=== PATIENT | female | born 1980 | race African-American/Black ===

== ENCOUNTER 2016-03-11 11:26 | Outpatient (CLI) | payer OTHER ==
[~2016-03-11] VITALS: Ht 162.6 cm; Wt 90.0 kg
[2016-03-11 11:36] VITALS: BP 117/63
[2016-03-11 11:38] VITALS: BP 111/59
[2016-03-11] MEDS ORDERED: PRENTAB9 PO (11:52)
[2016-03-11 13:02] VITALS: BP 123/59
== END 2016-03-11 13:50 | disposition home or self-care (01) ==
LOC: M LDO 11:26
PROVIDERS: ATTEND Obstetrics & Gynecology
DX: O36.8130 Decreased fetal movements, third trimester, not applicable or unspecified (principal); Z3A.27 27 weeks gestation of pregnancy; Z88.0 Allergy status to penicillin; Z88.6 Allergy status to analgesic agent

== ENCOUNTER 2016-05-31 02:33 | Inpatient (IN) | payer OTHER ==
[2016-05-31] VITALS (42 sets, daily range): BP systolic 84–124; BP diastolic 50–77
[~2016-05-31] VITALS: Ht 162.6 cm; Wt 102.0 kg
[~2016-05-31 02:33] MED LIST: PRENTAB9 PO
[2016-05-31] MEDS ORDERED: LACTATED RINGER'S 1000 ML IV STA (03:07)
[2016-05-31] MEDS ORDERED: LR 1,000 ML IV SCH (03:18)
[2016-05-31 03:29] LABS: MEAN CORPUSCULAR HEMOGLOBIN 30.2 pg (27.0-33.0); MEAN CORPUSCULAR HGB CONC 33.3 g/dl (32.0-36.5); MEAN CORPUSCULAR VOLUME 90.5 fl (80.0-96.0); RED CELL DISTRIBUTION WIDTH 13.6 % (11.5-14.5); WHITE BLOOD COUNT 6.8 K/mm3 (4.0-10.0)
[2016-05-31] MEDS: LR 1,000 ML IV SCH ×3 (03:30→16:42)
[2016-05-31] MEDS ORDERED: OXYTOCIN DRIP 30 UNITS in APPROPRIATE DILUENT 1 EA IV SCH (03:30)
--- NOTE | 2016-05-31 08:40 | IPNPDOC ---
Obstetrical Progress Note Date of Service The patient was seen on 05/31/16 at 08:28. Progress Note [id number] @ [address] Jones @ 0730. 35 yo @ 39+2 by 7 wk US on 17OCT2016 with ROM @ 0100 on 31MAY2016 of clear fluid. S: Resting in bed on left side. Uncomfortable and breathing through CTXs. Spouse at bedside. O: VS- WNL, afebrile FHR- 140, min-mod variability, no accels, persistent late decels CTX- Q 2-3 min, lasting < 90 sec, palpated as moderate, resting tone palpated as soft Pitocin @ 4 mU/min SVE- FT/50/-3, soft/vtx/post SROM x 7 hours, fluid remains clear. A: 35 yo @ 39+2 with SROM clear fluid x 7 hours, no s/s of infection, CAT II FHR Tracing P: continue to monitor and assess. Report to Dr. Ramon to discuss plan of care. O2, continue to change pt position, and fluid bolus as appropriate. VS, I&O, 24H, Pravinbonsushil Vital Signs/I&O Vital Signs Date Time Temp Pulse Resp B/P Pulse Ox O2 Delivery O2 Flow Rate FiO2 05/31/16 08:09 98.2 05/31/16 08:00 66 98/57 05/31/16 06:00 20 Laboratory Data 24H LABS Laboratory Tests 2 05/31/16 03:08: Serology Scanned Report Hepatitis B Testing 05/31/16 03:10: CBC/BMP Laboratory Tests 05/31/16 03:10 Red Blood Count 4.02, Mean Corpuscular Volume 90.5, Mean Corpuscular Hemoglobin 30.2, Mean Corpuscular Hemoglobin Concent 33.3, Red Cell Distribution Width 13.6 MARIVEL BETANCOURT CNM May 31, 2016 08:40
[2016-05-31] MEDS ORDERED: BUTORPHANOL 2 MG/ML INJ (J0595) IV ONE (10:15)
[2016-05-31] MEDS ORDERED: PROMETHAZINE INJ 25 MG/ML VIAL (J2550) IV ONE (10:15)
--- NOTE | 2016-05-31 10:19 | IPNPDOC ---
Obstetrical Progress Note Date of Service The patient was seen on 05/31/16 at 10:15. Progress Note [id number] @ 1015 35 yo @ 39+2 by 7 wk US on 17OCT2016 with ROM @ 0100 on 31MAY2016 of clear fluid. S: Resting in bed on right side. Uncomfortable and breathing through CTXs. Requesting IV pain medication. Spouse at bedside. O: VS- WNL, afebrile FHR- 150, mod variability, + accels, intermittent late deceleration CTX- Q 2-5 min, lasting < 90 sec, palpated as moderate, resting tone palpated as soft Pitocin @ 4 mU/min SVE- deferred SROM x 9 hours, fluid remains clear. A: 35 yo @ 39+2 with SROM clear fluid x 9 hours, no s/s of infection, CAT II FHR Tracing. P: continue to monitor and assess, reassess in 2 hours or prn, stadol and phenergan ordered, continue to titrate pitocin per unit protocol Reviewed FHR tracing with Dr. Ramon @ 0900, has no concerns with FHR tracing. No change to plan of care. VS, I&O, 24H, Fishbone Vital Signs/I&O Vital Signs Date Time Temp Pulse Resp B/P Pulse Ox O2 Delivery O2 Flow Rate FiO2 05/31/16 08:30 65 18 97/50 05/31/16 08:09 98.2 Laboratory Data 24H LABS Laboratory Tests 2 05/31/16 03:08: Serology Scanned Report Hepatitis B Testing 05/31/16 03:10: CBC/BMP Laboratory Tests 05/31/16 03:10 Red Blood Count 4.02, Mean Corpuscular Volume 90.5, Mean Corpuscular Hemoglobin 30.2, Mean Corpuscular Hemoglobin Concent 33.3, Red Cell Distribution Width 13.6 MARIVEL BETANCOURT CNM May 31, 2016 10:19
--- NOTE | 2016-05-31 12:42 | IPNPDOC ---
Obstetrical Progress Note Date of Service The patient was seen on 05/31/16 at 12:39. Progress Note [id number] @ 1235 35 yo @ 39+2 by 7 wk US on 17OCT2016 with ROM @ 0100 on 31MAY2016 of clear fluid. S: Resting in bed in right tilt. Reports feeling CTXs, but the IV medication is helping a lot. Spouse at bedside. O: VS- WNL, afebrile FHR- 150, min-mod variability, + accels, intermittent late deceleration CTX- Q 2-5 min, lasting < 90 sec, palpated as moderate, resting tone palpated as soft Pitocin @ 4 mU/min SVE- FT/50/-3, vtx/post/moderate SROM x 11.5 hours, fluid remains clear. A: 35 yo @ 39+2 with SROM clear fluid x 11.5 hours, no s/s of infection , CAT II FHR Tracing. P: continue to monitor and assess, reassess in 2 hours or prn, continue to titrate pitocin per unit protocol VS, I&O, 24H, Fishbone Vital Signs/I&O Vital Signs Date Time Temp Pulse Resp B/P Pulse Ox O2 Delivery O2 Flow Rate FiO2 05/31/16 12:33 98.5 93 16 121/76 Laboratory Data 24H LABS Laboratory Tests 2 05/31/16 03:08: Serology Scanned Report Hepatitis B Testing 05/31/16 03:10: Syphilis Serology NONREACTIVE CBC/BMP Laboratory Tests 05/31/16 03:10 Red Blood Count 4.02, Mean Corpuscular Volume 90.5, Mean Corpuscular Hemoglobin 30.2, Mean Corpuscular Hemoglobin Concent 33.3, Red Cell Distribution Width 13.6 MARIVEL BETANCOURT CNM May 31, 2016 12:42
--- NOTE | 2016-05-31 14:53 | IPNPDOC ---
Obstetrical Progress Note Date of Service The patient was seen on 05/31/16 at 14:50. Progress Note [id number] @ 1445 35 yo @ 39+2 by 7 wk US on 17OCT2016 with ROM @ 0100 on 31MAY2016 of clear fluid. S: Resting in bed sleeping. Wakes easily to talk. Reports feeling mild CTXs. Spouse at bedside. O: Pitocin was turned off @ 1250. It is now 1450 and CTXs continue to occur Q 5-8 min. Pt fell asleep after turning off the pitocin. A: 35 yo @ 39+2 with SROM clear fluid x 13.5 P: continue to monitor and assess, Pt is to take a shower and start pitocin by 1530. Continue to increase pitocin per unit protocol. VS, I&O, 24H, Fishbone Vital Signs/I&O Vital Signs Date Time Temp Pulse Resp B/P Pulse Ox O2 Delivery O2 Flow Rate FiO2 05/31/16 13:37 98.0 64 16 97/56 Laboratory Data 24H LABS Laboratory Tests 2 05/31/16 03:08: Serology Scanned Report Hepatitis B Testing 05/31/16 03:10: Syphilis Serology NONREACTIVE CBC/BMP Laboratory Tests 05/31/16 03:10 Red Blood Count 4.02, Mean Corpuscular Volume 90.5, Mean Corpuscular Hemoglobin 30.2, Mean Corpuscular Hemoglobin Concent 33.3, Red Cell Distribution Width 13.6 MARIVEL BETANCOURT CNM May 31, 2016 14:53
[2016-05-31] MEDS ORDERED: FENTANYL 2MCG/ML ROPIVACAINE 0.2% IN 0.9% NACL 200ML IVBAG As Ordered ONE (16:31)
[2016-05-31 17:46] LABS: MEAN CORPUSCULAR HGB CONC 32.9 g/dl (32.0-36.5); MEAN CORPUSCULAR VOLUME 91.1 fl (80.0-96.0); RED CELL DISTRIBUTION WIDTH 13.8 % (11.5-14.5); WHITE BLOOD COUNT 7.4 K/mm3 (4.0-10.0)
[2016-05-31] MEDS ORDERED: LACTATED RINGER'S 1000 ML IV PRN (19:15)
[2016-05-31] MEDS ORDERED: REFRIGERATOR IV KEYS XX PRN (19:15)
[2016-05-31] MEDS ORDERED: EPIDURAL/PCA KEYS XX PRN (19:15)
[2016-05-31] MEDS ORDERED: FENTANYL/ROPIVACAINE/NACL BAG 200 ML EPIDURAL SCH (19:15)
[2016-05-31] MEDS ORDERED: NALOXONE INJ 0.4 MG/1 ML VIAL (J2310) IV PRN (19:15)
[2016-05-31] MEDS ORDERED: ONDANSETRON 4MG/2ML VIAL (J2405) IV PRN (19:15)
[2016-05-31] MEDS ORDERED: EPIDURAL COMMENT XX SCH (19:15)
[2016-05-31] MEDS ORDERED: diphenhydrAMINE INJ 50MG/ML VIAL (J1200) IV PRN (19:15)
[2016-05-31] MEDS ORDERED: ePHEDrine SULFATE 25 MG/5 ML(5MG/ML) SYRINGE IV PRN (19:15)
--- NOTE | 2016-05-31 20:17 | IPNPDOC ---
Text Note Date of Service The patient was seen on 05/31/16. NOTE I accepted care of Nicole at 1930 this evening. She is a primip with PROM last night at 0100, clear. Fingertip on admission, started on pitocin, evaluated over the course of the day and not felt to make much change, no phelps bulb could be attempted. Cat I FHRT, currently on pit of 8mu. Ctx q3min. Epidural in place, comfortable. SCE: /-2. Phelps bulb now easily placed. Will continue to titrate pitocin per protocol. Close eye to maternal temp/FHRT for evidence of developing chorio, since will have been ruptured 24hr tonight at 0100. Has thus far been afebrile. Safe to proceed. Pat Ramon MD VS,Andre, I+O VSAndre I+O Laboratory Tests 05/31/16 03:10 Red Blood Count 4.02, Mean Corpuscular Volume 90.5, Mean Corpuscular Hemoglobin 30.2, Mean Corpuscular Hemoglobin Concent 33.3, Red Cell Distribution Width 13.6 05/31/16 17:18 Red Blood Count 3.71 L, Mean Corpuscular Volume 91.1, Mean Corpuscular Hemoglobin 30.0, Mean Corpuscular Hemoglobin Concent 32.9, Red Cell Distribution Width 13.8 Vital Signs Date Time Temp Pulse Resp B/P Pulse Ox O2 Delivery O2 Flow Rate FiO2 05/31/16 19:37 72 05/31/16 19:31 20 109/68 05/31/16 19:10 97.6 Room Air PAT RAMON MD May 31, 2016 20:17
[2016-06-01] VITALS (26 sets, daily range): BP systolic 102–128; BP diastolic 55–78
--- NOTE | 2016-06-01 00:30 | IPNPDOC ---
Text Note Date of Service The patient was seen on 06/01/16. NOTE Patient comfortable with epidural. Called to room by RN to evaluate tracing. FHRT had a few subtle late decels. She had pulled on the phelps bulb and it came out, tracing improved for a few minutes then had a couple subtle late decels again. Pitocin was turned down a small amount. Currently Cat I with +accels/mod iam/no decels, but recently had just those few subtle lates that appear resolved for the time being. FHRT has always maintained mod iam and accels. IUPC and FSE placed to better monitor FHRT and adequately assess MVUs to titrate pitocin. Had conversation with patient that if FHRT developed a pattern with decelerations that did not resolve with our interventions, we would need to proceed with section. However, at this time, FHRT is very reassuring. If cannot get adequate MVUs with appropriate pitocin titration with continued tolerance, will proceed to . Will continue to closely monitor. Safe to proceed. Dr. Pat Ramon MD VS,Andre, I+O VSAndre, I+O Laboratory Tests 05/31/16 03:10 Red Blood Count 4.02, Mean Corpuscular Volume 90.5, Mean Corpuscular Hemoglobin 30.2, Mean Corpuscular Hemoglobin Concent 33.3, Red Cell Distribution Width 13.6 05/31/16 17:18 Red Blood Count 3.71 L, Mean Corpuscular Volume 91.1, Mean Corpuscular Hemoglobin 30.0, Mean Corpuscular Hemoglobin Concent 32.9, Red Cell Distribution Width 13.8 Vital Signs Date Time Temp Pulse Resp B/P Pulse Ox O2 Delivery O2 Flow Rate FiO2 05/31/16 23:12 68 05/31/16 22:59 98.2 109/70 05/31/16 19:31 20 05/31/16 19:10 Room Air PAT RAMON MD Jun 01, 2016 00:30
--- NOTE | 2016-06-01 05:50 | IPNPDOC ---
Text Note Date of Service The patient was seen on 06/01/16. NOTE Patient had her epidural re-bolused during the night and had good pain relief after, but wearing off again and now feeling a lot of tail bone pain, tearful with contractions. States she "doesn't want to do this anymore". Plan was to re-check this morning and if not progressing, to proceed with . Her cervix has not changed, still /-2 after placement of IUPC just under 6 hours ago. She had PROM at 0100 the previous night, now 29hr ruptured. No fevers or evidence of chorio. Reassuring FHRT. Will proceed with for arrest of dilation/inability to augment. Consent form signed. Dr. Pat Ramon MD VS,Andre, I+O VS, Andre, I+O Laboratory Tests 05/31/16 17:18 Red Blood Count 3.71 L, Mean Corpuscular Volume 91.1, Mean Corpuscular Hemoglobin 30.0, Mean Corpuscular Hemoglobin Concent 32.9, Red Cell Distribution Width 13.8 Vital Signs Date Time Temp Pulse Resp B/P Pulse Ox O2 Delivery O2 Flow Rate FiO2 06/01/16 03:51 99.0 06/01/16 02:44 81 116/72 05/31/16 19:31 20 05/31/16 19:10 Room Air I&O- Last 24 Hours up to 6 AM 06/01/16 06:00 Intake Total 2600 ml Output Total 2600 ml Balance 0 ml PAT RAMON MD Jun 01, 2016 05:50
[2016-06-01] MEDS ORDERED: BICITRA 30ML SOLN UDC PO ONE (06:00)
[2016-06-01] MEDS ORDERED: CLINDAMYCIN 900 MG in APPROPRIATE DILUENT 1 EA IV ONE (06:00)
[2016-06-01] MEDS ORDERED: GENTAMICIN 150 MG in D5W 50 ML IV ONE (06:00)
[2016-06-01] MEDS ORDERED: OXYTOCIN INJ 10 UNITS/ML VIAL (J2590) As Ordered ONE (06:10)
[2016-06-01] MEDS ORDERED: MORPHINE PRES-FREE INJ 10 MG/10 ML VIAL (J2274) As Ordered ONE (06:48)
[2016-06-01] MEDS ORDERED: GENTAMICIN 10 MG/ML 2ML VIAL*PRES.FREE* (J1580) As Ordered ONE ×2 (06:49→06:53)
[2016-06-01] MEDS ORDERED: dexameTHASONE 4 MG/ML 1ML VIAL (J1100) As Ordered ONE (06:51)
[2016-06-01] MEDS ORDERED: MIDAZOLAM INJ 2 MG/2 ML VIAL (J2250) As Ordered ONE (07:01)
[2016-06-01 07:56] LABS: CORD GAS ABE V -8.1; CORD GAS HCO3 V 20.4 MEQ/L; CORD GAS O2 SAT V 62.9 %; CORD GAS PCO2 V 53.3 mmHg; CORD GAS PH V 7.201 UNITS; CORD GAS PO2 V 33.2 mmHg; CORD GAS SBC V 17.2 MEQ/L
[2016-06-01] MEDS ORDERED: MEASLES,MUMPS,RUBELLA VACCINE INJ (MMR-II) (90707) SC SCH (08:00)
[2016-06-01] MEDS ORDERED: MORPHINE 2 MG/ML 1ML SYRINGE IV PRN (08:00)
[2016-06-01] MEDS ORDERED: miSOPROStol 200 MCG TAB (S0191) PR ONE (08:00)
[2016-06-01] MEDS ORDERED: RHOGAM 300 MCG (1500 IU) INJ (J2790) IM SCH (08:00)
[2016-06-01] MEDS ORDERED: PERCOCET 5MG/325MG TAB PO PRN (08:15)
[2016-06-01] MEDS ORDERED: fentaNYL 100 MCG/2 ML INJECTION (J3010) IV PRN (08:15)
[2016-06-01] MEDS ORDERED: ONDANSETRON 4MG/2ML VIAL (J2405) IV PRN (08:15)
[2016-06-01] MEDS: DOCUSATE SODIUM 100 MG CAP PO SCH ×2 (09:00→20:29)
[2016-06-01] MEDS: PRENATAL VITAMIN TAB PO SCH (09:00)
--- NOTE | 2016-06-01 10:37 | RO ---
DATE OF PROCEDURE: 06/01/2016 PREPROCEDURE DIAGNOSES: Term intrauterine with rupture of membranes, arrest of dilation. POSTPROCEDURE DIAGNOSES: Term intrauterine with rupture of membranes, arrest of dilation. PROCEDURE PERFORMED: Primary low transverse section. SURGEON: Ann-Marie Ramon MD TANK TRUCK ENGINE MECHANIC: Irineo Mendiola MD CLINICAL SERVICE: Obstetrics. INDICATION FOR OPERATION: Nicole is a 35-year-old, 3, now para 1-0-2-1 who was admitted for premature rupture of membranes, dilated only to fingertip, and had very slow progression to 4 cm, which she remained with adequate MVUs and IUPC in place for greater than 6 hours, so the diagnosis of arrest of dilation was made in the setting of rupture of membranes for 29 hours. MATERIAL FORWARDED TO THE LAB FOR EXAMINATION: Venous cord gas. DESCRIPTION OF FINDINGS: Male infant in OA presentation, scores 9 and 9, weight 4224 grams or 9 pounds 6 ounces. Normal-appearing uterus, tubes, and ovaries. There was terminal meconium but no meconium stained fluid. INFECTION CLASSIFICATION: 2. ESTIMATED BLOOD LOSS: 700 mL. IV FLUIDS: 1100 mL of lactated Ringers URINE OUTPUT: 450 mL of clear yellow urine. DESCRIPTION OF PROCEDURE: After obtaining informed consent, Nicole was taken to the operating room. Florian catheter was already in place since she had an epidural. Bilateral sequential compression devices were placed. She was prepped and draped in normal sterile fashion in the dorsal supine position with a left lateral tilt. She received 900 mg of clindamycin IV and 150 mg of gentamicin given that she had an allergy to penicillin. Time out was performed to confirm patient's name, date of , procedure, and indication. The surgical team was all in agreement. Epidural anesthesia was found to be adequate using Allis clamp. Pfannenstiel skin incision was made with a scalpel and carried through to the underlying layer of the fascia. Fascia was incised in the midline and the incision was extended laterally with the Rodriguez scissors. The superior and inferior aspects of the fascial incision were grasped with Roberto clamps, elevated and the underlying rectus muscles were dissected off bluntly and sharply. Peritoneum was entered digitally and the rectus muscles were in the midline. Peritoneal incision was extended superiorly and inferiorly with good visualization of the bladder. Bladder blade was inserted and the vesicouterine peritoneum was identified, grasped with pickups and entered sharply with the Metzenbaum scissors. Incision was extended laterally and the bladder flap was created digitally. Bladder blade was reinserted and the lower uterine segment was scored in a transverse fashion with the scalpel. The uterus was entered bluntly and the incision was extended with traction. Bladder blade was removed and the infant's head was elevated to the level of the incision. We attempted to use the vacuum to bring the head to the level of the incision, but there was too much hair and the vacuum popped off twice. We did have to make incisions in both of the rectus bundles to be able to gain adequate room for the head, but the head was delivered atraumatically when fundal pressure was applied in the OA position. Anterior shoulder, posterior shoulder, and corpus were delivered without difficulty. Nose and mouth were suctioned with bulb suction and cord was clamped times two and cut. Terminal meconium was noted. Infant was handed off to the awaiting nursing team, and venous cord gas was obtained. Placenta was removed manually and the uterus was exteriorized and cleared of all clot and debris. Uterine incision was repaired with #0 Vicryl in a running locking fashion. A second layer using #0 Monocryl was used to close the hysterotomy incision in an imbricating fashion. Uterine incision was inspected. Hemostasis was noted. Posterior cul-de-sac was irrigated and the uterus was returned to the abdomen. Peritoneum was closed using #3-0 Vicryl suture in a running fashion. The rectus muscles were inspected and there was only one area with very slight bleeding that we reapproximated using figure of eight stitch with #0 Vicryl suture. Fascia was reapproximated with #0 Vicryl suture in a running fashion. Subcutaneous tissue was copiously irrigated. Seth's fascia reapproximated using #3-0 Vicryl suture in a running fashion, and then skin edges were reapproximated using three inverted interrupted stitches using #3-0 Vicryl suture, followed by a running subcuticular stitch using #4-0 Monocryl. THe incision was cleaned using a wet lap and dried with a dry lap. Steri-Strips were applied in the usual fashion perpendicular to the Pfannenstiel incision. The sterile drapes were removed and the vagina was cleared of all blood clot without active bleeding noted. I did place 1000 mcg of Cytotec rectally for prophylaxis given that she has been on Pitocin for a long time. Fundus was firm at U -1 cm. All counts were correct times two. Nursing team applied pressure dressing to the surgical incision. No complications of the procedure and she tolerated it well. She was taken to the recovery room on labor and delivery in stable condition.
[2016-06-01] MEDS: PERCOCET 5MG/325MG TAB PO PRN ×2 (13:33→17:11)
[2016-06-01] MEDS ORDERED: D5W IV ONE (17:00)
[2016-06-01] MEDS ORDERED: GENTAMICIN IV ONE (17:00)
[2016-06-01] MEDS: LR 1,000 ML IV SCH (23:54)
[2016-06-02] MEDS: PERCOCET 5MG/325MG TAB PO PRN ×5 (01:50→23:45)
[2016-06-02 02:00] VITALS: BP 107/59
[2016-06-02 06:23] VITALS: BP 107/58
[2016-06-02] MEDS: LR 1,000 ML IV SCH ×5 (06:28→23:54)
[2016-06-02] MEDS ORDERED: miSOPROStol 200 MCG TAB (S0191) As Ordered ONE (07:22)
[2016-06-02] MEDS: DOCUSATE SODIUM 100 MG CAP PO SCH ×2 (07:36→21:13)
[2016-06-02] MEDS: PRENATAL VITAMIN TAB PO SCH (07:37)
[2016-06-02 08:57] LABS: MEAN CORPUSCULAR HEMOGLOBIN 31.6 pg (27.0-33.0); MEAN CORPUSCULAR HGB CONC 34.6 g/dl (32.0-36.5); MEAN CORPUSCULAR VOLUME 91.4 fl (80.0-96.0); RED CELL DISTRIBUTION WIDTH 13.8 % (11.5-14.5); WHITE BLOOD COUNT 9.1 K/mm3 (4.0-10.0)
[2016-06-02 09:58] VITALS: BP 110/57
--- NOTE | 2016-06-02 10:09 | IPNPDOC ---
Text Note Date of Service The patient was seen on 06/02/16. NOTE Post-Op Day 1 Nicole is a 35yo [id number] doing well on post-op day 1 s/p uncomplicated PLTCS indicated for arrest of dilation after presenting with PROM 29hr prior and not progressing beyond 4cm for greater than 6hr at 39w3d. She has not yet been able to urinate. Phelps was removed yesterday afternoon and she did not meet due to void, had over 1L drained with phelps. Phelps again removed this morning at 0600 and replaced 3hr later when patient unable to void. She has labial swelling which may be contributing to her inability to urinate. She is , currently receiving assistance from clinical operations consultant. Lochia normal. Ambulating without difficulty. Tolerating regular diet. Denies f/c/n/v/ SOB/CP/ROBERSON/abdominal pain. Vitals wnl, afebrile Exam: General: WDWN, NAD, resting comfortably Cardiac: S1S2 present, no murmur Lungs: CTAB without wheeze/crackles Abdomen: soft, NTTP, fundus firm u-2cm, pfannensteil incision intact with no surrounding erythema, no drainage. Steris in place which are clean and dry. Extremities: no tenderness of calves bilaterally Phelps draining clear yellow urine Labs: Admission H/H: 12.1/36.4 POD 1 H/H: 11/31.8 (Surgical EBL 700ml) Assessment: Nicole is a 35yo [id number] doing well on post-op day 1 s/p uncomplicated PLTCS indicated for arrest of dilation. Vitals wnl, benign exam. No e/o infection, hemodynamically stable. Giving bladder rest currently with phelps draining clear yellow urine, adequate UOP. Plan: -routine post-op/post- care -phelps until tomorrow at 0600, then due to void -Regular diet -percocet prn pain -Encourage ambulation and and use of IS -breast pump Rx given -likely discharge to home tomorrow Dr. Pat Ramon MD [facility] VS,Andre, I+O VS, Andre, I+O Laboratory Tests 06/02/16 08:10 Red Blood Count 3.48 L, Mean Corpuscular Volume 91.4, Mean Corpuscular Hemoglobin 31.6, Mean Corpuscular Hemoglobin Concent 34.6, Red Cell Distribution Width 13.8 Vital Signs Date Time Temp Pulse Resp B/P Pulse Ox O2 Delivery O2 Flow Rate FiO2 06/02/16 09:58 98.1 76 18 110/57 06/02/16 07:37 Room Air 06/02/16 06:23 97 I&O- Last 24 Hours up to 6 AM 06/02/16 05:59 Output Total 4775 ml Balance -4775 ml PAT RAMON MD Jun 02, 2016 10:09
[2016-06-02 10:30] VITALS: BP 121/75
[2016-06-02 14:00] VITALS: BP 116/60
[2016-06-02 22:00] VITALS: BP 121/75
[2016-06-03] MEDS: PERCOCET 5MG/325MG TAB PO PRN ×5 (03:38→21:52)
[2016-06-03 06:26] VITALS: BP 110/53
[2016-06-03] MEDS: DOCUSATE SODIUM 100 MG CAP PO SCH ×2 (07:57→21:05)
[2016-06-03] MEDS: PRENATAL VITAMIN TAB PO SCH (07:57)
[2016-06-03] MEDS: HYDROCORTISONE 1% OINTMENT 30GM TOP SCH ×2 (15:00→21:06)
[2016-06-03 18:06] VITALS: BP 117/62
[2016-06-04] MEDS: PERCOCET 5MG/325MG TAB PO PRN ×3 (02:27→12:17)
[2016-06-04 05:33] VITALS: BP 124/60
[2016-06-04] MEDS: HYDROCORTISONE 1% OINTMENT 30GM TOP SCH (07:33)
[2016-06-04] MEDS: PRENATAL VITAMIN TAB PO SCH (07:34)
[2016-06-04] MEDS: DOCUSATE SODIUM 100 MG CAP PO SCH (07:34)
[2016-06-04] MEDS ORDERED: COLA100C3 PO (14:34)
[2016-06-04] MEDS ORDERED: OXYC1TAB23 PO (14:34)
== END 2016-06-04 15:30 | disposition home or self-care (01) | DRG 766 ==
LOC: M LDO 02:33 → M LDI 02:54 → M OBS 06-01 07:59
PROVIDERS: ADMIT Student in an Organized Health Care Education/Training Program; ATTEND Student in an Organized Health Care Education/Training Program
PROC: 10D00Z1 Extraction of Products of Conception, Low, Open Approach (ICD-10-PCS; principal; 2016-06-01 11:05)
DX: O42.02 Full-term premature rupture of membranes, onset of labor within 24 hours of rupture (principal); Z37.0 Single live birth; Z3A.39 39 weeks gestation of pregnancy; O62.0 Primary inadequate contractions

== ENCOUNTER 2016-10-31 06:10 | Day surgery (SDC) | payer OTHER ==
[~2016-10-31] VITALS: Ht 162.6 cm; Wt 96.6 kg
[~2016-10-31 06:10] MED LIST changes: +COLA100C5 PO; +MULT1TAB10 PO; +OXYC1TAB23 PO
[2016-10-31 06:30] LABS: MEAN CORPUSCULAR HGB CONC 34.2 g/dl (32.0-36.5); MEAN CORPUSCULAR VOLUME 87.6 fl (80.0-96.0); RED CELL DISTRIBUTION WIDTH 13.3 % (11.5-14.5); WHITE BLOOD COUNT 5.4 K/mm3 (4.0-10.0)
[2016-10-31 06:45] LABS: CONTROL LINE HCG INT CTR LINE PRESENT
[2016-10-31] MEDS ORDERED: LR 1,000 ML IV ONE (06:45)
[2016-10-31] MEDS ORDERED: BUPIVACAINE/EPIN 0.25% 30 ML VIAL As Ordered ONE (07:19)
[2016-10-31] MEDS ORDERED: MIDAZOLAM INJ 2 MG/2 ML VIAL (J2250) As Ordered ONE (07:53)
[2016-10-31] MEDS ORDERED: dexameTHASONE 4 MG/ML 1ML VIAL (J1100) As Ordered ONE (07:53)
[2016-10-31] MEDS ORDERED: fentaNYL 100 MCG/2 ML INJECTION (J3010) As Ordered ONE (07:53)
[2016-10-31] MEDS ORDERED: PROPOFOL 500 MG/50 ML VIAL As Ordered ONE (07:53)
[2016-10-31] MEDS ORDERED: METOCLOPRAMIDE INJ 10MG/2ML VIAL (J2765) As Ordered ONE (07:53)
[2016-10-31] MEDS ORDERED: ONDANSETRON 4MG/2ML VIAL (J2405) As Ordered ONE (07:54)
[2016-10-31] MEDS ORDERED: ROCURONIUM BROMIDE 50 MG/5 ML VIAL/SYRINGE As Ordered ONE (08:00)
[2016-10-31] MEDS ORDERED: LIDOCAINE 2% INJ 100 MG/5 ML SDV (FOR ANES.) As Ordered ONE (08:03)
[2016-10-31] MEDS ORDERED: SILVER NITRATE APPLICATOR As Ordered ONE (08:03)
[2016-10-31] MEDS ORDERED: NEOSTIGMINE 1MG/ML 5 ML SYRINGE (J2710) As Ordered ONE (08:03)
[2016-10-31] MEDS ORDERED: GLYCOPYRROLATE INJ 0.2 MG/ML 2 ML VIAL As Ordered ONE (08:03)
[2016-10-31] MEDS ORDERED: HYDROmorphone HCL 2 MG/ML 1ML VIAL (J1170) As Ordered ONE (08:10)
[2016-10-31] MEDS ORDERED: fentaNYL 100 MCG/2 ML INJECTION (J3010) IV PRN (08:45)
[2016-10-31] MEDS ORDERED: ONDANSETRON 4MG/2ML VIAL (J2405) IV PRN (08:45)
[2016-10-31] MEDS ORDERED: PERCOCET 5MG/325MG TAB PO PRN (08:45)
[2016-10-31] MEDS ORDERED: METOCLOPRAMIDE INJ 10MG/2ML VIAL (J2765) IV PRN (08:45)
[2016-10-31] MEDS ORDERED: LR 1,000 ML IV SCH (08:45)
[2016-10-31] MEDS ORDERED: MORPHINE 2 MG/ML 1ML SYRINGE IV PRN (08:45)
--- NOTE | 2016-10-31 11:42 | RO ---
DATE OF PROCEDURE: 10/31/2016 PREOPERATIVE DIAGNOSIS: Satisfied parity. 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 PROCEDURE: Laparoscopic tubal ligation SURGEON: Bulmaro Paredes MD DOPER OPERATOR: Kobi Crain MD ANESTHESIA: General. ESTIMATED BLOOD LOSS: Less than 5 mL. DRAINS: 300 mL in the Florian catheter which was removed at the end of the case. REPLACED: 900 mL of fluid, Lactated Ringer's. SPECIMENS: None. PREOPERATIVE ANTIBIOTICS: None. INDICATIONS: Satisfied parity, however the patient was a 1, para 1, therefore I elected to not do a salpingectomy and instead used Filshie clips. DESCRIPTION OF OPERATION: Informed consent was obtained 1-2 weeks prior to the surgery and nothing had changed on the morning of the surgery. Her labs were normal. Proceeded to the operating room with an IV plan and general anesthesia was easily obtained. She was placed in a low lithotomy position and an exam under anesthesia was performed. This was unremarkable. She was then prepped and draped in a normal sterile fashion with the addition of placing a Florian catheter. I placed as speculum into the vagina, grasped the cervix posteriorly with a single tooth tenaculum and easily inserted a Visonyslka uterine manipulator without difficulty. Gloves were then changed and attention was turned to the abdomen. I injected approximately 5 mL just under the umbilicus and with a 5 mm incision inserted a 5 mm trocar directly into the abdomen under direct visualization. Low flow at first and then high flow CO2 when I confirmed that were indeed intraperitoneal. 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 Otherwise, the upper and lower abdomen was normal. I then placed a 7 mm trocar in the exact same manner as the prior trocar, although this time it was under direct visualization into the abdomen. Filshie clip technical mgr was placed through the abdomen and after following out the left fallopian tube to the fimbriated end, I placed a Filshie clip at the mid isthmic portion. This was repeated on the patient's right side without difficulty. Hemostasis was noted and CO2 was allowed to escape the abdomen prior to removing both trocars under direct visualization. The 7 mm trocar site was closed with a figure-of-8 suture incorporating the fascia of #3-0 Vicryl and the skin was then closed in a subcuticular fashion with #4-0 Monocryl. The 5 mm upper incision was closed simply with DERMABOND. DERMABOND was also placed over the lower incision. All instruments were removed from the vagina. A small amount of silver nitrate was used to obtain hemostasis from the cervical puncture sites and after all instruments were removed from the vagina, the patient was awakened from general anesthesia and transferred to the postanesthesia care unit (PACU) in stable condition after all counts were correct. VALARIE
[2016-10-31 12:45] VITALS: BP 154/85
== END 2016-10-31 13:00 | disposition home or self-care (01) ==
LOC: M SDC 06:10
PROVIDERS: ATTEND Obstetrics & Gynecology
DX: Z30.2 Encounter for sterilization (principal); A54.85 Gonococcal peritonitis; Z88.0 Allergy status to penicillin; Z87.891 Personal history of nicotine dependence; Z91.013 Allergy to seafood
CPT/HCPCS: 36415; 58671; 84703; 85027; 86850; 86900; 86901; A4649; J1100; J1170; J2250; J2405; J2710; J2765; J3010